=== PATIENT | male | born 1945 | race Caucasian/White ===

== ENCOUNTER 2017-09-08 20:30 | Outpatient (CLI) | payer MEDICARE | END 2017-09-08 20:31 | disposition home or self-care (01) | LOC: SLEEPLAB 20:30 | PROVIDERS: ATTEND Family Medicine | DX: G47.33 Obstructive sleep apnea (adult) (pediatric) (principal); E66.9 Obesity, unspecified; I10 Essential (primary) hypertension; R06.83 Snoring; R35.1 Nocturia; R53.83 Other fatigue; R94.31 Abnormal electrocardiogram [ECG] [EKG] | CPT/HCPCS: 95811 ==

== ENCOUNTER 2018-05-27 08:50 | Outpatient (CLI) | payer MEDICARE ==
--- NOTE | 2018-05-27 12:15 | MRI ---
MRI RIGHT SHOULDER: 05/27/2018 PROVIDED CLINICAL HISTORY: Right shoulder pain. FINDINGS: There is low-grade, partial-thickness bursal surface tearing involving the distal conjoined tendon, n ear the footplate. The components of the rotator cuff appear otherwise intact. The longhead biceps tendon appears intact and normally located. The glenoid labrum and glenohumeral articular cartilage are suboptimally evaluated in the absence of joint distention. There is linear signal alteration present involving the posterior-superior glenoid labrum that could reflect a nondisplaced tear. Articular cartilage thinning involves the central as pects of the glenoid and the apposing humeral head. Mild acromioclavicular joint osteoarthrosis without significant mass effect upon the subjacent supras pinatus. The amount of fluid within the glenohumeral joint appears physiologic. There is greater than physiol ogic subacromial subdeltoid bursal fluid. IMPRESSION: 1. Small, low-grade partial-thickness bursal surface tear involving the distal conjoined tendon, marino r the footplate. 2. Greater than physiologic subacromial/subdeltoid bursal fluid could reflect mild bursitis or an oc cult full-thickness component to the described tear. 3. Degenerative glenohumeral articular chondrosis. 4. Acromioclavicular joint osteoarthrosis, mild. POS: C
== END 2018-05-27 08:51 | disposition home or self-care (01) ==
LOC: SCSMRI 08:50
PROVIDERS: ATTEND Family Medicine
DX: M75.31 Calcific tendinitis of right shoulder (principal); S46.911A Strain of unspecified muscle, fascia and tendon at shoulder and upper arm level, right arm, initial encounter; M19.011 Primary osteoarthritis, right shoulder

== ENCOUNTER 2024-12-21 07:27 | Outpatient (CLI) | payer OTHER | END 2024-12-21 07:28 | disposition home or self-care (01) | LOC: BICMAMMO 07:27 | PROVIDERS: ATTEND Family Medicine | DX: E03.9 Hypothyroidism, unspecified (principal); M85.851 Other specified disorders of bone density and structure, right thigh | CPT/HCPCS: 77080 ==